=== PATIENT | male | born 2000 | race Caucasian/White ===

== ENCOUNTER 2023-01-02 11:51 | Day surgery (SDC) | payer OTHER ==
[2023-01-02] MEDS ORDERED: LACTATED RINGERS 1,000 ML IV ONE ×2 (12:14→15:07)
[2023-01-02] MEDS ORDERED: LIDOCAINE 1%-EPI 1:100000 20 ML MDV ONE (12:53)
[2023-01-02] MEDS ORDERED: BUPIVACAINE 0.25% PF 30 ML VIAL ONE ×2 (12:54→14:24)
[2023-01-02] MEDS ORDERED: NALOXONE 0.4 MG/ML VIAL IVP PRN (13:50)
[2023-01-02] MEDS ORDERED: ePHEDrine 50 MG/ML VIAL IVP PRN (13:50)
[2023-01-02] MEDS ORDERED: HYDROmorphone 0.5 MG/0.5 ML SYRINGE IVP PRN (13:50)
[2023-01-02] MEDS ORDERED: fentaNYL 100 MCG/2 ML VIAL IVP PRN (13:50)
[2023-01-02] MEDS ORDERED: ONDANSETRON 4 MG/2 ML VIAL IVP PRN (13:50)
[2023-01-02] MEDS ORDERED: ATROPINE ABBOJECT 1 MG/10 ML SYRINGE IVP PRN (13:50)
--- NOTE | 2023-01-02 13:50 | ANESTHESIA ---
Pre-Anesthesia VS, & Labs - Diagnosis left arm/flank lipoma - Procedure left arm/left flank lipoma excision Vital Signs: Temp Pulse Resp BP Pulse Ox O2 Flow Rate 36.1 C L 73 16 136/92 H 98 01/02/23 12:18 01/02/23 12:18 01/02/23 12:18 01/02/23 12:18 01/02/23 12:18 Height: 5 ft 6 in Weight (kg): 92 kg Body Mass Index: 32.7 BMI Classification: Obese - NPO >8 hours - Lab Results Lab results reviewed: Yes Home Medications and Allergies Home Medications: Ambulatory Orders Buspirone HCl 10 mg PO BID 12/27/22 Buspirone HCl 10 mg PO BID 12/27/22 Allergies/Adverse Reactions: Allergies Allergy/AdvReac Type Severity Reaction Status Date / Time No Known Drug Allergies Allergy Verified 12/27/22 13:15 Anes History & Medical History - Anesthetic History Anesthesia Complications: reports: No previous complications Family history of Anesthesia Complications: Denies Family history of Malignant Hyperthermia: Denies - Medical History Cardiovascular: reports: None Pulmonary: reports: Asthma Gastrointestinal: reports: None Urinary: reports: None Musculoskeletal: reports: None Endocrine/Autoimmune: reports: None Skin: reports: None Smoking Status: Current every day smoker - Surgical History Eyes Ears Nose Throat (EENT): reports: Tonsil/Adenoidectomy Exam General: Alert, Oriented x3, Cooperative Dental: WNL Mouth Openin Fingerbreadth Neck Mobility: Normal Mallampati classification: II Thyromental Distance: 4-6 cm Respiratory: Lungs clear Cardiovascular: Regular rate Plan Anesthesia Type: General Consent for Procedure(s) Verified and Reviewed: Yes Code Status: Attempt Resuscitation ASA classification: 2-Mild systemic disease Is this case an emergency?: No
[2023-01-02] MEDS ORDERED: fentaNYL 100 MCG/2 ML VIAL ONE (13:53)
[2023-01-02] MEDS ORDERED: LACTATED RINGERS 1,000 ML IV SCH (14:00)
[2023-01-02] MEDS ORDERED: BUPIVACAINE 0.25% PF 30 ML VIAL SUBQ ONE ×3 (14:20)
[2023-01-02] MEDS ORDERED: LIDOCAINE MPF 1%-EPI 1:200000 30 ML VIAL SUBQ ONE ×2 (14:20)
[2023-01-02] MEDS ORDERED: HYDROcod/ACETAM 5/325 MG TABLET PO PRN (15:15)
--- NOTE | 2023-01-02 15:17 | OPERATIVE REPORT ---
Operative Report - General Procedure Date: 01/02/23 Planned Procedure: excision 2 flank lipomas, excsion 3 left upper arm lipomas, excision 1 left forearm lipoma Pre-Op Diagnosis: lipomas arms all 1.5 x 2 cm. lipomas flank both 2.5 cm Procedure Performed: as above Post Op Diagnosis: same - Procedure Note Primary Surgeon: bessie barr Anesthesia Technique: General LMA, Local Pathology: benign not sent Urine Output (mL): 3 Drain/Tube Type: Other (none) Indications: painful tumors/ lipomas Findings: as above Complications: none - Other Other Information/Narrative: The patient was properly notified brought to the operating room and placed in supine position. Left arm was placed on an armboard. He was prepped and draped in a sterile fashion after laryngeal mask anesthesia was induced. Antibiotics were not given. Local anesthetic was given to incision areas. The left flank lipomas were first addressed. They measured approximately 2 to 2-1/2 cm up. Incisions were made in the direction of Apolonia's lines and the lipoma was completely removed. Hemostasis was achieved with cautery. Incisions measured approximately 2 cm. Intermediate repair was performed. Subcutaneous tissue was closed with interrupted 3-0 Vicryl suture. Buried interrupted subdermal 3-0 Vicryl sutures were then placed. Skin was closed with running 4-0 Monocryl subcuticular suture. The arm lipomas were then addressed. The arm lipomas all measured approximately 1-1/2 to 2 cm. Vertical incisions were made measuring approximately 1/2 cm. He had 3 left upper arm lipomas and 1 left forearm lipoma. All were removed with careful blunt and sharp dissection. Hemostasis was achieved with cautery. Intermediate repair again performed with buried interrupted 3-0 Vicryl suture followed by buried interrupted subdermal 4-0 Monocryl suture. Steri-Strips and dressings were applied. He tolerated the procedure well was awakened and brought to recovery in good condition.
--- NOTE | 2023-01-02 15:32 | ANESTHESIA POST OP EVALUATION ---
Anesthesia Post Eval - Post Anesthesia Eval Vitals: Last Vital Signs Temp 36.6 C 01/02/23 15:31 Pulse 70 01/02/23 15:31 Resp 14 01/02/23 15:31 BP 118/74 01/02/23 15:31 Pulse Ox 99 01/02/23 15:31 O2 Flow Rate CV Function Including HR & BP: Stable Pain Control: Satisfactory Nausea & Vomiting: Negative Mental Status: Baseline Respiratory Status: Airway Patent Hydration Status: Satisfactory Anesthesia Complications: None
[2023-01-02 16:18] VITALS: BP 111/67
== END 2023-01-02 11:52 | disposition home or self-care (01) ==
LOC: SDS 11:51
PROVIDERS: ATTEND Surgery
DX: D17.1 Benign lipomatous neoplasm of skin and subcutaneous tissue of trunk (principal); D17.22 Benign lipomatous neoplasm of skin and subcutaneous tissue of left arm; J45.909 Unspecified asthma, uncomplicated; E66.9 Obesity, unspecified; Z68.34 Body mass index [BMI] 34.0-34.9, adult
CPT/HCPCS: 21930; 24075; 25075; J7120